=== PATIENT | male | born 1995 | race Caucasian/White ===

== ENCOUNTER 2017-06-24 08:59 | Emergency (ER) | payer BC, OTHER ==
[~2017-06-24] VITALS: Ht 170.2 cm; Wt 62.6 kg
[2017-06-24 09:01] VITALS: BP 136/90; PULSE 116; TEMP 36.8; O2SAT 99; Ht 170.2 cm; Wt 62.6 kg
[2017-06-24] MEDS ORDERED: AMPH1TAB58 PO (09:28)
[2017-06-24] MEDS ORDERED: SERT50TA PO (09:28)
[2017-06-24] MEDS ORDERED: AMPH10TA2 PO (09:28)
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
== END 2017-06-24 09:36 | disposition home or self-care (01) ==
LOC: C.EDB 09:02
DX: R51 Headache (principal); M54.2 Cervicalgia; S80.812A Abrasion, left lower leg, initial encounter; V89.2XXA Person injured in unspecified motor-vehicle accident, traffic, initial encounter; J45.909 Unspecified asthma, uncomplicated; F90.9 Attention-deficit hyperactivity disorder, unspecified type; Z79.899 Other long term (current) drug therapy